=== PATIENT | female | born 1940 | race Caucasian/White ===

== ENCOUNTER 2023-01-23 08:04 | Day surgery (SDC) | payer MEDICARE, OTHER ==
[~2023-01-23] VITALS: Ht 165.1 cm; Wt 127.3 kg
[2023-01-23] MEDS ORDERED: LISI20 PO (08:36)
[2023-01-23] MEDS ORDERED: TRELEGY ELLIPT1 EAC1 INH (08:37)
[2023-01-23] MEDS ORDERED: INDO50 PO (08:39)
[2023-01-23 10:29] VITALS: BP 137/75
--- NOTE | 2023-01-23 11:22 | NUR ---
01/23/23 1122 Aletha Servin FALL RISK PANPHLET GIVEN.
== END 2023-01-23 11:19 | disposition home or self-care (01) ==
LOC: ORSCSDS 08:04
PROVIDERS: Orthopaedic Surgery
PROC: 01N50ZZ Release Median Nerve, Open Approach (ICD-10-PCS; principal; 2023-01-23 09:15)
DX: G56.01 Carpal tunnel syndrome, right upper limb (principal); I10 Essential (primary) hypertension; J45.909 Unspecified asthma, uncomplicated; Z79.899 Other long term (current) drug therapy; E66.01 Morbid (severe) obesity due to excess calories; Z68.42 Body mass index [BMI] 45.0-49.9, adult
CPT/HCPCS: J0690; J1100; J2405; J2704; J7120

== ENCOUNTER 2023-11-04 03:59 | Day surgery (SDC) | payer MEDICARE, OTHER ==
[~2023-11-04 03:59] MED LIST: INDO50 PO; LISI20 PO; TRELEGY ELLIPT1 EAC1 INH
[2023-11-04] MEDS ORDERED: Lidocaine HCl 4% Cream 5 GM ONE (13:18)
[2023-11-04] MEDS ORDERED: Silver Nitr/Potassium Nitrate 1 EA APPL ONE (13:29)
== END 2023-11-04 22:51 | disposition home or self-care (01) ==
LOC: WOUND 03:59
DX: S81.802A Unspecified open wound, left lower leg, initial encounter (principal); T14.8XXD Other injury of unspecified body region, subsequent encounter; I87.2 Venous insufficiency (chronic) (peripheral); I73.9 Peripheral vascular disease, unspecified; X58.XXXA Exposure to other specified factors, initial encounter; Y83.8 Other surgical procedures as the cause of abnormal reaction of the patient, or of later complication, without mention of misadventure at the time of the procedure
CPT/HCPCS: A6213; A9270; G0463

== ENCOUNTER 2023-12-29 03:54 | Day surgery (SDC) | payer MEDICARE, OTHER | END 2023-12-29 23:36 | disposition home or self-care (01) | LOC: WOUND 03:54 | DX: S81.802D Unspecified open wound, left lower leg, subsequent encounter (principal); T14.8XXD Other injury of unspecified body region, subsequent encounter; I87.2 Venous insufficiency (chronic) (peripheral); I73.9 Peripheral vascular disease, unspecified; X58.XXXD Exposure to other specified factors, subsequent encounter | CPT/HCPCS: G0463 ==